=== PATIENT | male | born 1985 | race Caucasian/White ===

== ENCOUNTER 2018-10-05 17:52 | Emergency (ER) | payer MEDICAID ==
[~2018-10-05] VITALS: Ht 177.8 cm; Wt 72.7 kg
[2018-10-05 18:11] VITALS: BP 127/99
[2018-10-05] MEDS ORDERED: IBUPROFEN 800 MG TABLET PO ONE (20:00)
== END 2018-10-05 20:55 | disposition home or self-care (01) ==
LOC: EMS 17:55
DX: S92.425A Nondisplaced fracture of distal phalanx of left great toe, initial encounter for closed fracture (principal); W20.1XXA Struck by object due to collapse of building, initial encounter; Y93.89 Activity, other specified; Y92.89 Other specified places as the place of occurrence of the external cause; Y99.8 Other external cause status

== ENCOUNTER 2018-11-19 14:29 | Emergency (ER) | payer MEDICAID ==
[~2018-11-19] VITALS: Ht 177.8 cm; Wt 68.2 kg
[2018-11-19 14:36] VITALS: BP 138/91
== END 2018-11-19 16:33 | disposition home or self-care (01) ==
LOC: EMS 14:30
DX: F31.9 Bipolar disorder, unspecified (principal); F14.90 Cocaine use, unspecified, uncomplicated